=== PATIENT | male | born 1940 | race Caucasian/White ===

== ENCOUNTER → 2024-03-16 10:38 | Outpatient (REF) | payer OTHER, MEDICARE, SELFPAY ==
[2024-03-16 11:07] LABS: Hematocrit 36.2 % (39.0-52.0); Hemoglobin 11.8 g/dL (13.0-18.0); Mean Corp Hgb Conc. 32.6 g/dL (33.0-37.0); Mean Corpuscular Hgb 30.2 pg (27.0-31.0); Mean Corpuscular Volume 92.6 fL (80.0-94.0); Mean Platelet Volume 10.8 fL (7.4-10.4); Platelet Count 235 10^3/uL (130-400); Red Blood Cell Count 3.91 10^6/uL (4.70-6.10); White Blood Cell Count 5.5 10^3/uL (4.8-10.8)
[2024-03-16 11:14] LABS: ALT (SGPT) 20 U/L (0-50); AST (SGOT) 22 U/L (17-59); Albumin 4.2 g/dl (3.5-5.0); Alkaline Phosphatase 56 U/L (38-126); Blood Urea Nitrogen 15 mg/dl (9-20); Carbon Dioxide 24 mmol/L (22-30); Chloride 101 mmol/L (98-107); Glucose 106 mg/dl (70-99); Potassium 4.2 mmol/L (3.5-5.1); Sodium 135 mmol/L (135-145); Total Bilirubin 0.3 mg/dl (0.2-1.3); Total Protein 6.5 g/dl (6.3-8.2); eGFR > 60.00
== END ==
LOC: OLABP 10:38
PROVIDERS: ATTENDING PHYSICIAN Family Medicine
DX: G60.9 Hereditary and idiopathic neuropathy, unspecified (principal); E78.2 Mixed hyperlipidemia; I87.301 Chronic venous hypertension (idiopathic) without complications of right lower extremity; K21.9 Gastro-esophageal reflux disease without esophagitis; M51.369 Other intervertebral disc degeneration, lumbar region without mention of lumbar back pain or lower extremity pain; M17.11 Unilateral primary osteoarthritis, right knee; M12.561 Traumatic arthropathy, right knee; E66.9 Obesity, unspecified; E55.9 Vitamin D deficiency, unspecified; M25.562 Pain in left knee; M17.12 Unilateral primary osteoarthritis, left knee; M25.572 Pain in left ankle and joints of left foot; S83.232A Complex tear of medial meniscus, current injury, left knee, initial encounter; S83.272A Complex tear of lateral meniscus, current injury, left knee, initial encounter
CPT/HCPCS: 36415; 80053; 85027